=== PATIENT | female | born 1990 | race African-American/Black ===

== ENCOUNTER 2018-05-05 08:16 | Inpatient (IN) | payer MEDICAID ==
[~2018-05-05] VITALS: Ht 165.1 cm; Wt 65.1 kg
[2018-05-05] MEDS ORDERED: ALBUTEROL (0.083%) 2.5MG/3ML NEB HHN STA ×3 (08:35→11:04)
[2018-05-05] MEDS ORDERED: IPRATROPIUM BROMIDE (0.02%) 0.5MG/2.5ML NEB HHN STA ×3 (08:35→11:04)
[2018-05-05] MEDS ORDERED: METHYLPREDNISOLONE SOD SUCC 125 MG/2 ML VIAL IV STA (08:35)
[2018-05-05 09:38] LABS: BASOPHILS % 1.1 % (0.0-2.0); EOSINOPHILS % 1.6 % (0.0-5.0); HEMATOCRIT. 44.9 % (36.0-48.0); HEMOGLOBIN. 14.8 g/dL (12.0-16.0); LYMPHOCYTES % 14.9 % (20.0-50.0); MEAN CORPUSCULAR HEMOGLOBIN 28.2 pg (28.0-32.0); MEAN CORPUSCULAR VOLUME 85.8 fL (81.0-99.0); MEAN PLATELET VOLUME 8.8 fl (7.4-10.4); MONOCYTES % 6.5 % (2.0-8.0); NEUTROPHILS % 75.9 % (40.0-76.0); PLATELET 291 x1000/uL (130-400); RED BLOOD CELL COUNT 5.24 mill/uL (4.2-5.4); RED CELL DISTRIBUTION WIDTH 14.3 % (11.6-14.6)
[2018-05-05 09:46] LABS: CHLORIDE 106 mEq/L (98-107)
[2018-05-05] MEDS ORDERED: ALBUTEROL (0.5%) 2.5MG/0.5ML NEB HHN ONE (10:11)
[2018-05-05] MEDS ORDERED: SODIUM CHLORIDE 0.9% 1,000 ML IV ONE (10:26)
[2018-05-05] MEDS ORDERED: MAGNESIUM 2 G PREMIX 50 ML IV STA (10:26)
[2018-05-05 20:15] VITALS: BP 143/80
[2018-05-05 20:55] VITALS: BP 143/80
[2018-05-05] MEDS ORDERED: IPRATROPIUM/ALBUTEROL 0.5-3(2.5)MG/3ML NEB HHN PRN (23:00)
[2018-05-05] MEDS: METHYLPREDNISOLONE SOD SUCC 40 MG/ML VIAL IV SCH (23:10)
[2018-05-06] VITALS: BP 131/73
[2018-05-06] MEDS ORDERED: LEVOFLOXACIN 500MG PREMIX 100 ML IV SCH
[2018-05-06] MEDS ORDERED: ALBUTEROL (0.083%) 2.5MG/3ML NEB HHN SCH
[2018-05-06] MEDS: METHYLPREDNISOLONE SOD SUCC 40 MG/ML VIAL IV SCH ×6 (03:26→22:39)
[2018-05-06 04:00] VITALS: BP 137/92
[2018-05-06 08:00] VITALS: BP 153/69
[2018-05-06] MEDS ORDERED: SALMETEROL 50 MCG/INH 28 BLIST DISKUS INHR ORI SCH (09:00)
[2018-05-06] MEDS: IPRATROPIUM/ALBUTEROL 0.5-3(2.5)MG/3ML NEB HHN SCH ×3 (11:49→21:15)
[2018-05-06 12:00] VITALS: BP 110/61
[2018-05-06] MEDS ORDERED: THIAMINE HCL 100MG TABLET PO NR (14:00)
[2018-05-06] MEDS ORDERED: LORAZEPAM 1MG TABLET PO PRN (14:15)
[2018-05-06] MEDS: NICOTINE 21MG PATCH TD SCH (14:30)
[2018-05-06 16:00] VITALS: BP 120/67
[2018-05-06] MEDS: MONTELUKAST SODIUM 10MG TABLET PO SCH (17:16)
[2018-05-06 20:00] VITALS: BP 125/78
[2018-05-06] MEDS: BUDESONIDE 0.5MG/2ML NEB HHN SCH (21:15)
[2018-05-07] VITALS: BP 131/68
[2018-05-07] MEDS: IPRATROPIUM/ALBUTEROL 0.5-3(2.5)MG/3ML NEB HHN SCH ×6 (00:52→21:38)
[2018-05-07] MEDS ORDERED: LEVOFLOXACIN 500MG PREMIX 100 ML IV SCH (01:00)
[2018-05-07 04:00] VITALS: BP 128/75
[2018-05-07] MEDS: METHYLPREDNISOLONE SOD SUCC 40 MG/ML VIAL IV SCH ×4 (04:28→17:25)
[2018-05-07] MEDS: ACETAMINOPHEN 325MG TABLET PO PRN ×2 (06:21→11:49)
[2018-05-07 08:00] VITALS: BP 133/86
[2018-05-07] MEDS: FOLIC ACID 1MG TABLET PO SCH (08:43)
[2018-05-07] MEDS: MULTIVITAMINS,THER W-MINERALS TABLET PO SCH (08:43)
[2018-05-07] MEDS: NICOTINE 21MG PATCH TD SCH (08:44)
[2018-05-07] MEDS: BUDESONIDE 0.5MG/2ML NEB HHN SCH ×2 (10:00→21:38)
[2018-05-07 12:00] VITALS: BP 131/82
[2018-05-07] MEDS ORDERED: AZITHROMYCIN 500 MG TABLET PO NR (14:45)
[2018-05-07] MEDS: LORATADINE 10MG TABLET PO SCH (15:25)
[2018-05-07 16:00] VITALS: BP 135/79
[2018-05-07] MEDS: MONTELUKAST SODIUM 10MG TABLET PO SCH (17:25)
[2018-05-07 20:00] VITALS: BP 144/94
[2018-05-07] MEDS: FAMOTIDINE 20MG/2ML VIAL IV SCH (20:44)
[2018-05-07] MEDS: GUAIFENESIN 200MG/10ML SUGAR FREE UDC PO PRN (22:09)
[2018-05-08] VITALS (7 sets, daily range): BP systolic 110–132; BP diastolic 69–89
[2018-05-08] MEDS: IPRATROPIUM/ALBUTEROL 0.5-3(2.5)MG/3ML NEB HHN SCH ×6 (01:58→20:58)
[2018-05-08] MEDS: METHYLPREDNISOLONE SOD SUCC 40 MG/ML VIAL IV SCH ×2 (05:16→18:13)
[2018-05-08 05:51] LABS: CHLORIDE 105 mEq/L (98-107)
[2018-05-08 06:08] LABS: BASOPHILS % 0.2 % (0.0-2.0); HEMOGLOBIN. 12.8 g/dL (12.0-16.0); LYMPHOCYTES % 8.8 % (20.0-50.0); MEAN CORPUSCULAR HEMOGLOBIN 28.4 pg (28.0-32.0); MEAN CORPUSCULAR VOLUME 86.6 fL (81.0-99.0); MEAN PLATELET VOLUME 8.5 fl (7.4-10.4); MONOCYTES % 8.3 % (2.0-8.0); NEUTROPHILS % 82.7 % (40.0-76.0); PLATELET 280 x1000/uL (130-400); RED BLOOD CELL COUNT 4.51 mill/uL (4.2-5.4); RED CELL DISTRIBUTION WIDTH 14.8 % (11.6-14.6)
[2018-05-08] MEDS: BUDESONIDE 0.5MG/2ML NEB HHN SCH ×2 (07:46→20:58)
[2018-05-08] MEDS: AZITHROMYCIN 250 MG TABLET PO SCH (08:49)
[2018-05-08] MEDS: THIAMINE HCL 100MG TABLET PO SCH (08:49)
[2018-05-08] MEDS: MULTIVITAMINS,THER W-MINERALS TABLET PO SCH (08:49)
[2018-05-08] MEDS: LORATADINE 10MG TABLET PO SCH (08:49)
[2018-05-08] MEDS: FOLIC ACID 1MG TABLET PO SCH (08:49)
[2018-05-08] MEDS: NICOTINE 21MG PATCH TD SCH (08:50)
[2018-05-08] MEDS: FAMOTIDINE 20MG/2ML VIAL IV SCH ×2 (08:50→21:07)
[2018-05-08] MEDS ORDERED: TERBUTALINE SULFATE 1MG/ML VIAL SUBCUT NR (13:00)
[2018-05-08] MEDS: MONTELUKAST SODIUM 10MG TABLET PO SCH (18:13)
[2018-05-08] MEDS: GUAIFENESIN 200MG/10ML SUGAR FREE UDC PO PRN (21:13)
[2018-05-09] VITALS: BP 143/93
[2018-05-09] MEDS: IPRATROPIUM/ALBUTEROL 0.5-3(2.5)MG/3ML NEB HHN SCH ×6 (00:03→20:05)
[2018-05-09] MEDS: GUAIFENESIN 200MG/10ML SUGAR FREE UDC PO PRN ×5 (01:29→19:59)
[2018-05-09 04:00] VITALS: BP 134/76
[2018-05-09] MEDS: METHYLPREDNISOLONE SOD SUCC 40 MG/ML VIAL IV SCH ×2 (05:29→18:36)
[2018-05-09 08:00] VITALS: BP 128/66
[2018-05-09] MEDS: LORATADINE 10MG TABLET PO SCH (09:06)
[2018-05-09] MEDS: AZITHROMYCIN 250 MG TABLET PO SCH (09:06)
[2018-05-09] MEDS: FOLIC ACID 1MG TABLET PO SCH (09:06)
[2018-05-09] MEDS: FAMOTIDINE 20MG/2ML VIAL IV SCH ×2 (09:07→20:00)
[2018-05-09] MEDS: BUDESONIDE 0.5MG/2ML NEB HHN SCH ×2 (09:07→20:05)
[2018-05-09] MEDS: MULTIVITAMINS,THER W-MINERALS TABLET PO SCH (09:07)
[2018-05-09] MEDS: THIAMINE HCL 100MG TABLET PO SCH (09:07)
[2018-05-09] MEDS: NICOTINE 21MG PATCH TD SCH (09:10)
[2018-05-09 12:00] VITALS: BP_SYST 117; BP_SYST 127; BP_DIAS 66; BP_DIAS 81
[2018-05-09 16:00] VITALS: BP 113/75
[2018-05-09] MEDS: MONTELUKAST SODIUM 10MG TABLET PO SCH (18:36)
[2018-05-09 20:00] VITALS: BP 115/73
[2018-05-10] VITALS: BP 124/71
[2018-05-10] MEDS: GUAIFENESIN 200MG/10ML SUGAR FREE UDC PO PRN (00:05)
[2018-05-10] MEDS: IPRATROPIUM/ALBUTEROL 0.5-3(2.5)MG/3ML NEB HHN SCH ×4 (00:43→12:28)
[2018-05-10 04:00] VITALS: BP 113/70
[2018-05-10] MEDS: METHYLPREDNISOLONE SOD SUCC 40 MG/ML VIAL IV SCH (05:38)
[2018-05-10 08:00] VITALS: BP 125/91
[2018-05-10] MEDS: THIAMINE HCL 100MG TABLET PO SCH (08:32)
[2018-05-10] MEDS: FAMOTIDINE 20MG/2ML VIAL IV SCH (08:32)
[2018-05-10] MEDS: LORATADINE 10MG TABLET PO SCH (08:32)
[2018-05-10] MEDS: MULTIVITAMINS,THER W-MINERALS TABLET PO SCH (08:32)
[2018-05-10] MEDS: FOLIC ACID 1MG TABLET PO SCH (08:32)
[2018-05-10] MEDS: AZITHROMYCIN 250 MG TABLET PO SCH (08:32)
[2018-05-10] MEDS: NICOTINE 21MG PATCH TD SCH (08:33)
[2018-05-10 12:00] VITALS: BP 130/82
[2018-05-10 13:10] VITALS: BP 130/82
== END 2018-05-10 14:20 | disposition home or self-care (01) | DRG 133 ==
LOC: ER 09:12 → 5WST 13:45 → EDBEDREQ 14:04 → ENRESERV 18:44
PROVIDERS: ADMIT Internal Medicine; ATTEND Internal Medicine
DX: J96.00 Acute respiratory failure, unspecified whether with hypoxia or hypercapnia (principal); J45.902 Unspecified asthma with status asthmaticus; R65.10 Systemic inflammatory response syndrome (SIRS) of non-infectious origin without acute organ dysfunction; F10.239 Alcohol dependence with withdrawal, unspecified; F17.210 Nicotine dependence, cigarettes, uncomplicated; F12.90 Cannabis use, unspecified, uncomplicated; J20.9 Acute bronchitis, unspecified; Z71.6 Tobacco abuse counseling; Z79.899 Other long term (current) drug therapy
CPT/HCPCS: 36415; 71045; 80048; 84484; 94640; 96374; 99285; J1956; J2920; J2930; J3105; J3475; J3490; J7030; J7050; J7611; J7620; J7626